=== PATIENT | female | born 1990 | race Asian ===

== ENCOUNTER 2018-01-19 15:26 | Day surgery (SDC) | payer SELFPAY ==
[~2018-01-19] VITALS: Ht 160 cm; Wt 52.2 kg
[2018-01-19 15:41] VITALS: BP_SYST 106
[2018-01-19 17:00] LABS: BASOPHILS % (AUTO) 0.2 % (0.0-2.0); HEMOGLOBIN 12.4 g/dL (12.0-16.0); LYMPHOCYTES # (AUTO) 0.7 K/uL (1.0-5.5); LYMPHOCYTES % (AUTO) 4.8 % (20.5-51.5); MEAN CORPUSCULAR HEMOGLOBIN 32 pg (27-31); MEAN CORPUSCULAR HGB CONC 34 % (32-36); MEAN CORPUSCULAR VOLUME 95 fL (79.0-98.0); MONOCYTES # (AUTO) 0.7 K/uL (0.0-1.0); MONOCYTES % (AUTO) 4.9 % (1.7-9.3); NEUTROPHILS # (AUTO) 13.5 K/uL (1.8-7.7); NEUTROPHILS % (AUTO) 90.1 % (40.0-70.0); PLATELET COUNT (AUTO) 215 K/uL (130-430); RED CELL DISTRIBUTION WIDTH 12.5 % (9.0-15.0); WHITE BLOOD COUNT (AUTO) 14.9 K/uL (4.8-10.8)
[2018-01-19 17:11] LABS: CALCIUM 9.4 mg/dL (8.4-11.0); CREATININE 0.6 mg/dL (0.55-1.30); POTASSIUM 3.6 mmol/L (3.5-5.1)
[2018-01-19 17:15] LABS: INR 0.9 (0.8-1.2); PROTHROMBIN TIME 8.8 SECS (9.5-12.5)
[2018-01-19 17:16] LABS: ALBUMIN 2.6 g/dL (3.4-4.8); TOTAL BILIRUBIN 0.4 mg/dL (0.0-1.0)
[2018-01-19] MEDS ORDERED: LR 1,000 ML IV SCH ×2 (18:41)
[2018-01-19] MEDS ORDERED: MORPHINE 4 MG/ML INJ. SYRINGE IVP PRN ×6 (18:45)
[2018-01-19] MEDS ORDERED: MEPERIDINE HCL/PF 25 MG/ML DISP.SYRIN IVP PRN ×2 (18:45)
[2018-01-19] MEDS ORDERED: LR 1,000 ML IV.SOLN IV ONE (19:15)
[2018-01-19] MEDS ORDERED: MIDAZOLAM HCL 5 MG/ML VIAL (VERSED) IV ONE (19:15)
[2018-01-19] MEDS ORDERED: OXYTOCIN 10 UNIT/ML VIAL IV ONE (19:15)
[2018-01-19] MEDS ORDERED: OXYTOCIN/0.9 % SODIUM CHLORIDE 20 UNITS/1,000 ML BAG IV ONE (19:15)
[2018-01-19] MEDS ORDERED: NS IRRIG SOLN 1000 ML IR ONE (19:15)
[2018-01-19] MEDS ORDERED: BUPIVACAINE /PF 0.75% 10 ML VIAL INJ ONE (19:15)
[2018-01-19] MEDS ORDERED: ONDANSETRON HCL 4 MG/2 ML VIAL IVP ONE (19:15)
[2018-01-19 19:27] VITALS: BP_SYST 100
[2018-01-19] MEDS ORDERED: OXYCODONE/ACETAMINOPHEN 5-325 TABLET PO PRN ×2 (21:45)
[2018-01-19] MEDS ORDERED: KETOROLAC TROMETHAMINE 30 MG VIAL IVP PRN (21:45)
[2018-01-19] MEDS ORDERED: DERMOPLAST SPRAY TP PRN (21:45)
[2018-01-19] MEDS ORDERED: GLYCERIN/WITCH HAZEL (TUCKS PADS) TP PRN (21:45)
[2018-01-20 07:24] LABS: BASOPHILS % (AUTO) 0.1 % (0.0-2.0); EOSINOPHILS % (AUTO) 0.3 % (0.0-4.0); HEMATOCRIT 27.5 % (36-48); HEMOGLOBIN 9.1 g/dL (12.0-16.0); LYMPHOCYTES # (AUTO) 1.2 K/uL (1.0-5.5); LYMPHOCYTES % (AUTO) 11.8 % (20.5-51.5); MEAN CORPUSCULAR HEMOGLOBIN 32 pg (27-31); MEAN CORPUSCULAR HGB CONC 33 % (32-36); MEAN CORPUSCULAR VOLUME 96 fL (79.0-98.0); MONOCYTES # (AUTO) 0.4 K/uL (0.0-1.0); MONOCYTES % (AUTO) 4.3 % (1.7-9.3); NEUTROPHILS # (AUTO) 8.1 K/uL (1.8-7.7); NEUTROPHILS % (AUTO) 83.5 % (40.0-70.0); PLATELET COUNT (AUTO) 181 K/uL (130-430); RED BLOOD CELL COUNT(AUTO) 2.86 MIL/uL (4.2-6.2); RED CELL DISTRIBUTION WIDTH 12.5 % (9.0-15.0); WHITE BLOOD COUNT (AUTO) 9.8 K/uL (4.8-10.8)
[2018-01-20] MEDS ORDERED: CEFAZOLIN 2 GM IVPB PREMIX 50 ML IV ONE ×2 (08:45→08:50)
== END 2018-01-20 13:25 | disposition home or self-care (01) ==
LOC: SED 15:26 → SPU 20:15 → SED 20:15 → SDS 20:15 → SED 22:25 → SPU 22:25 → SOR 01-20 13:25 → SPU 01-20 13:25 → SDS 01-20 13:25
PROVIDERS: ATTEND Specialist
DX: O9A.23 Injury, poisoning and certain other consequences of external causes complicating the puerperium (principal); S31.41XA Laceration without foreign body of vagina and vulva, initial encounter; S37.33XA Laceration of urethra, initial encounter; Z98.890 Other specified postprocedural states; R00.0 Tachycardia, unspecified
CPT/HCPCS: 36415; 57210; 71045; 80053; 85025; 85610; 85730; 93005; 94760 ×2; 99285; J0690; J2250; J2405; J2590 ×2; J3490; J7120 ×2